=== PATIENT | male | born 1965 | race Hispanic/Latino ===

== ENCOUNTER 2017-08-31 14:51 | Emergency (ER) | payer MEDICAID ==
[~2017-08-31] VITALS: Ht 180.3 cm; Wt 100.0 kg
[2017-08-31] MEDS ORDERED: FOLI800C PO (15:07)
[2017-08-31] MEDS ORDERED: ZOLO50TA PO (15:07)
[2017-08-31] MEDS ORDERED: MAGN1TAB25 PO (15:07)
[2017-08-31] MEDS ORDERED: ACIP1TAB PO (15:07)
[2017-08-31] MEDS ORDERED: LEVO125T4 PO (15:07)
[2017-08-31] MEDS ORDERED: EXCETAB81 PO (15:07)
[2017-08-31] MEDS ORDERED: LORazepam 2 MG/ML VIAL (J2060) IV STA (16:16)
[2017-08-31] MEDS ORDERED: NS 1,000 ML IV ONE (16:30)
[2017-08-31 16:48] LABS: BASO # 0.1 10^3/uL (0.0-0.2); BASO % 0.6 % (0.0-1.0); EOS # 0.2 10^3/uL (0.0-0.50); EOS % 2.1 % (0.0-3.0); IMMATURE GRANULOCYTE % 0.4 % (0-0); LYMPH % 17.3 % (24.0-44.0); MEAN CORPUSCULAR HEMOGLOBIN 22.5 pg (27.0-33.0); MEAN CORPUSCULAR HGB CONC 28.3 g/dl (32.0-36.5); MEAN CORPUSCULAR VOLUME 79.6 fl (80.0-96.0); MONO # 0.6 10^3/uL (0.0-0.8); MONO % 5.1 % (0.0-5.0); NEUTROPHILS # 8.4 10^3/uL (1.8-7.7); NEUTROPHILS % 74.5 % (36.0-66.0); PLATELET COUNT, AUTOMATED 323 10^3/uL (150-450); RED CELL DISTRIBUTION WIDTH 19.3 % (11.5-14.5); WHITE BLOOD COUNT 11.3 10^3/uL (4.0-10.0)
--- NOTE | 2017-08-31 17:09 | ECGEPIP ---
Stationary ECG Study [facility] - ED Test Date: 2017-08-31 Pat Name: ALLEN AVILEZ Department: Room: - Gender: M Senior Sales Administrator: LISA : [id number] Requested By: Jonn Dobbins Order Number: [id number] Reading MD: Idris Feliciano Measurements Intervals Gladys Rate: 66 P: 78 [place]: 185 QRS: 77 QRSD: 80 T: 69 QT: 412 QTc: 432 Interpretive Statements SINUS RHYTHM INC. RBBB NSTTW ABNORMALITIES NO PRIORS Electronically Signed On 08-31-2017 17:08:58 EDT by Idris Feliciano
[2017-08-31 17:22] LABS: ALBUMIN 4.2 GM/DL (3.2-5.2); ALKALINE PHOSPHATASE 133 U/L (45-117); ALT/SGPT 21 U/L (12-78); ANION GAP 5 MEQ/L (8-16); AST/SGOT 19 U/L (15-37); BILIRUBIN,DIRECT 0.2 MG/DL (0.0-0.2); BILIRUBIN,TOTAL 0.5 MG/DL (0.2-1.0); BLOOD UREA NITROGEN 11 MG/DL (7-18); CALCIUM LEVEL 8.6 MG/DL (8.5-10.1); CARBON DIOXIDE LEVEL 27 MEQ/L (21-32); CHLORIDE LEVEL 109 MEQ/L (98-107); CREATININE FOR GFR 1.22 MG/DL (0.70-1.30); GLOMERULAR FILTRATION RATE > 60.0 (>56); GLUCOSE, FASTING 85 MG/DL (70-105); POTASSIUM SERUM 3.5 MEQ/L (3.5-5.1); SODIUM LEVEL 141 MEQ/L (136-145); TOTAL PROTEIN 8.4 GM/DL (6.4-8.2)
[2017-08-31 17:39] LABS: METHADONE URINE NEGATIVE (NEGATIVE)
[2017-08-31] MEDS ORDERED: OXAZ15CA4 PO (17:57)
[2017-08-31] MEDS ORDERED: OXAZEPAM 15 MG CAP PO ONE (18:00)
[2017-08-31 18:51] VITALS: BP 180/93
== END 2017-08-31 18:53 | disposition home or self-care (01) ==
LOC: M ED 14:51 → EDBD 14:51 → M ED 18:53
DX: D64.9 Anemia, unspecified (principal); F10.10 Alcohol abuse, uncomplicated; Z72.0 Tobacco use
CPT/HCPCS: 80048; 80076; 80307; 84443; 85025; 93005; 96361; 96374; 99284; G0480; J2060

== ENCOUNTER 2017-10-18 03:50 | Emergency (ER) | payer MEDICAID, OTHER ==
[~2017-10-18] VITALS: Ht 180.3 cm; Wt 95.5 kg
[~2017-10-18 03:50] MED LIST: ACIP1TAB PO; EXCETAB81 PO; FOLI800C PO; LEVO125T4 PO; MAGN1TAB25 PO; OXAZ15CA4 PO; ZOLO50TA PO
[2017-10-18] MEDS ORDERED: ACAM0.05 (04:03)
[2017-10-18] MEDS ORDERED: SUMA50TA2 (04:03)
[2017-10-18] MEDS ORDERED: ATOR1TAB19 (04:03)
[2017-10-18] MEDS ORDERED: FERR1TAB8 (04:03)
[2017-10-18] MEDS ORDERED: VITA500T (04:03)
[2017-10-18] MEDS ORDERED: VITA100T2 (04:03)
[2017-10-18] MEDS ORDERED: VITA10002 (04:03)
[2017-10-18] MEDS ORDERED: CYCLOBENZAPRINE 10 MG TAB PO ONE (08:00)
[2017-10-18] MEDS ORDERED: IBUPROFEN 800 MG TAB PO ONE (08:00)
--- NOTE | 2017-10-18 08:15 | REP ---
Left rib series: Five views including PA chest. History: Left rib pain. No comparison views. Findings: PA chest radiograph shows no evidence of pneumothorax or hydrothorax. Mediastinum is not widened. There is a zone of linear fibrosis in the right base. There are old healed right posterior rib fractures involving rib numbers 7, 8 and 9. A small zone of linear fibrosis versus discoid atelectasis is present in the left base. Mediastinum is not widened. Aorta is slightly tortuous. Heart size is normal. Multiple views of the left rib cage show no evidence of rib fracture or bony destructive lesion in the left hemithorax. There is a mild dextroconvex curve in the lumbar spine. Impression: No acute rib fracture or bony destructive lesion seen. Old healed rib fractures on the right. Mild bibasilar plate-like atelectasis versus linear scarring. Signed by Edy Campos MD 10/18/2017 04:14 P
[2017-10-18] MEDS ORDERED: CYCL10TA PO (08:23)
[2017-10-18 09:12] VITALS: BP 149/81
== END 2017-10-18 09:14 | disposition home or self-care (01) ==
LOC: EDBD 03:50 → M ED 03:50
DX: R07.81 Pleurodynia (principal); Z72.0 Tobacco use; W01.198A Fall on same level from slipping, tripping and stumbling with subsequent striking against other object, initial encounter; Y92.099 Unspecified place in other non-institutional residence as the place of occurrence of the external cause; Y93.01 Activity, walking, marching and hiking; Y99.9 Unspecified external cause status

== ENCOUNTER → 2018-02-01 | Outpatient (CLI) | payer OTHER | LOC: M OUTALCOH 08:14 | DX: Z13.9 Encounter for screening, unspecified (principal); F10.20 Alcohol dependence, uncomplicated ==

== ENCOUNTER → 2018-02-02 | Outpatient (REF) | payer OTHER ==
[2018-02-02 16:37] LABS: BASO # 0.1 10^3/uL (0.0-0.2); BASO % 0.8 % (0.0-1.0); EOS # 0.1 10^3/uL (0.0-0.50); EOS % 0.9 % (0.0-3.0); HEMATOCRIT 44.5 % (42.0-52.0); HEMOGLOBIN 13.7 g/dl (14.0-18.0); IMMATURE GRANULOCYTE % 0.3 % (0-3.0); LYMPH # 1.7 10^3/uL (1.5-4.5); LYMPH % 16.3 % (24.0-44.0); MEAN CORPUSCULAR HEMOGLOBIN 28.4 pg (27.0-33.0); MEAN CORPUSCULAR HGB CONC 30.8 g/dl (32.0-36.5); MEAN CORPUSCULAR VOLUME 92.3 fl (80.0-96.0); MONO # 0.7 10^3/uL (0.0-0.8); NEUTROPHILS # 7.8 10^3/uL (1.8-7.7); NEUTROPHILS % 74.7 % (36.0-66.0); PLATELET COUNT, AUTOMATED 248 10^3/uL (150-450); RED BLOOD COUNT 4.82 10^6/uL (4.30-6.10); RED CELL DISTRIBUTION WIDTH 16.3 % (11.5-14.5); WHITE BLOOD COUNT 10.4 10^3/uL (4.0-10.0)
[2018-02-02 16:48] LABS: INR 1.03; PROTHROMBIN TIME 13.6 SECONDS (12.4-14.5)
[2018-02-02 17:27] LABS: FOLATE 14.4 NG/ML; VITAMIN B12 LEVEL 527 PG/ML
[2018-02-02 17:33] LABS: ALBUMIN 4.2 GM/DL (3.2-5.2); ALBUMIN/GLOBULIN RATIO 1.02 (1.00-1.93); ALKALINE PHOSPHATASE 175 U/L (45-117); ALT/SGPT 27 U/L (12-78); ANION GAP 11 MEQ/L (8-16); AST/SGOT 30 U/L (7-37); BILIRUBIN,TOTAL 0.7 MG/DL (0.2-1.0); BLOOD UREA NITROGEN 10 MG/DL (7-18); CARBON DIOXIDE LEVEL 24 MEQ/L (21-32); CHLORIDE LEVEL 107 MEQ/L (98-107); CHOLESTEROL LEVEL 254 MG/DL (<200); CHOLESTEROL RISK RATIO 3.342 (<5); GLOMERULAR FILTRATION RATE > 60.0 (>56); GLUCOSE, FASTING 100 MG/DL (70-100); HDL CHOLESTEROL 76 MG/DL (>40); IRON (FE) 136 UG/DL (65-175); LDL CHOLESTEROL 103.4 MG/DL (<100); MAGNESIUM LEVEL 2.1 MG/DL (1.8-2.4); NON-HDL-C 178 MG/DL; PERCENT SATURATION 30.8 % (19.7-50.0); SODIUM LEVEL 142 MEQ/L (136-145); TOTAL IRON BINDING CAPACITY 442 UG/DL (250-450); TOTAL PROTEIN 8.3 GM/DL (6.4-8.2); TRIGLYCERIDES LEVEL 373 MG/DL (<150)
[2018-02-05 14:40] LABS: VITAMIN B1 LEVEL WHOLE BLOOD 251.9 nmol/L (66.5-200.0)
== END ==
LOC: M SFHCLERA 11:02
DX: E03.9 Hypothyroidism, unspecified (principal); D64.9 Anemia, unspecified; F10.20 Alcohol dependence, uncomplicated; E78.5 Hyperlipidemia, unspecified; K21.9 Gastro-esophageal reflux disease without esophagitis

== ENCOUNTER → 2018-03-13 | Outpatient (CLI) | payer OTHER | LOC: M OUTALCOH 13:36 | DX: F10.20 Alcohol dependence, uncomplicated (principal) ==

== ENCOUNTER 2018-03-23 13:17 | Outpatient (RCR) | payer OTHER | END 2018-04-20 | LOC: M OUTALCOH 13:17 | DX: F10.20 Alcohol dependence, uncomplicated (principal); Z72.0 Tobacco use ==

== ENCOUNTER 2018-05-09 17:10 | Emergency (ER) | payer OTHER ==
[2018-05-09 18:46] LABS: HEMATOCRIT 42.3 % (42.0-52.0); HEMOGLOBIN 13.8 g/dl (13.5-17.5); MEAN CORPUSCULAR HEMOGLOBIN 26.8 pg (27.0-33.0); MEAN CORPUSCULAR HGB CONC 32.6 g/dl (32.0-36.5); MEAN CORPUSCULAR VOLUME 82.1 fl (80.0-96.0); PLATELET COUNT, AUTOMATED 190 10^3/uL (150-450); RED BLOOD COUNT 5.15 10^6/uL (4.30-6.10); RED CELL DISTRIBUTION WIDTH 13.9 % (11.5-14.5)
[2018-05-09 19:50] LABS: ALBUMIN 3.9 GM/DL (3.2-5.2); ALBUMIN/GLOBULIN RATIO 0.98 (1.00-1.93); ALKALINE PHOSPHATASE 150 U/L (45-117); ALT/SGPT 34 U/L (12-78); ANION GAP 12 MEQ/L (8-16); AST/SGOT 27 U/L (7-37); BILIRUBIN,DIRECT 0.1 MG/DL (0.0-0.2); BILIRUBIN,TOTAL 0.5 MG/DL (0.2-1.0); BLOOD UREA NITROGEN 10 MG/DL (7-18); CALCIUM LEVEL 8.2 MG/DL (8.5-10.1); CARBON DIOXIDE LEVEL 23 MEQ/L (21-32); CHLORIDE LEVEL 109 MEQ/L (98-107); CREATININE FOR GFR 1.16 MG/DL (0.70-1.30); ETHYL ALCOHOL (ETHANOL) 0.294 % (0.000-0.010); GLOMERULAR FILTRATION RATE > 60.0 (>56); GLUCOSE, FASTING 96 MG/DL (70-100); POTASSIUM SERUM 3.5 MEQ/L (3.5-5.1); SALICYLATE LEVEL 3.2 MG/DL (5.0-30.0); SODIUM LEVEL 144 MEQ/L (136-145); TOTAL PROTEIN 7.9 GM/DL (6.4-8.2)
[2018-05-09 20:07] LABS: ACETAMINOPHEN LEVEL < 2.0 UG/ML (10.0-30.0)
[2018-05-09 20:08] LABS: AMPHETAMINES LEVEL URINE NEGATIVE (NEGATIVE); BARBITURATES URINE NEGATIVE (NEGATIVE); BENZODIAZEPINES URINE NEGATIVE (NEGATIVE); CANNABINOIDS URINE NEGATIVE (NEGATIVE); COCAINE METABOLITE URINE NEGATIVE (NEGATIVE); METHADONE URINE NEGATIVE (NEGATIVE); OPIATES URINE NEGATIVE (NEGATIVE); PHENCYCLIDINE URINE NEGATIVE (NEGATIVE)
== END 2018-05-09 21:46 | disposition home or self-care (01) ==
LOC: M ED 17:10
DX: F10.10 Alcohol abuse, uncomplicated (principal); I10 Essential (primary) hypertension; K21.9 Gastro-esophageal reflux disease without esophagitis; F32.9 Major depressive disorder, single episode, unspecified; Z72.0 Tobacco use; Z79.899 Other long term (current) drug therapy; Z88.5 Allergy status to narcotic agent
CPT/HCPCS: 80320

== ENCOUNTER → 2018-06-14 | Outpatient (CLI) | payer OTHER ==
[2018-06-14 13:16] LABS: HEMATOCRIT 44.4 % (42.0-52.0); MEAN CORPUSCULAR HEMOGLOBIN 26.7 pg (27.0-33.0); MEAN CORPUSCULAR HGB CONC 31.5 g/dl (32.0-36.5); MEAN CORPUSCULAR VOLUME 84.6 fl (80.0-96.0); PLATELET COUNT, AUTOMATED 218 10^3/uL (150-450); RED BLOOD COUNT 5.25 10^6/uL (4.30-6.10); RED CELL DISTRIBUTION WIDTH 14.5 % (11.5-14.5); WHITE BLOOD COUNT 9.7 10^3/uL (4.0-10.0)
[2018-06-14 13:49] LABS: AMMONIA 29 uMOL/L (<32)
[2018-06-14 13:58] LABS: ALBUMIN 4.1 GM/DL (3.2-5.2); ALBUMIN/GLOBULIN RATIO 1.08 (1.00-1.93); ALKALINE PHOSPHATASE 141 U/L (45-117); ALT/SGPT 42 U/L (12-78); ANION GAP 11 MEQ/L (8-16); AST/SGOT 29 U/L (7-37); BILIRUBIN,TOTAL 0.5 MG/DL (0.2-1.0); BLOOD UREA NITROGEN 13 MG/DL (7-18); CALCIUM LEVEL 8.7 MG/DL (8.5-10.1); CARBON DIOXIDE LEVEL 21 MEQ/L (21-32); CHLORIDE LEVEL 109 MEQ/L (98-107); CREATININE FOR GFR 1.13 MG/DL (0.70-1.30); GLOMERULAR FILTRATION RATE > 60.0 (>56); GLUCOSE, FASTING 88 MG/DL (70-100); SODIUM LEVEL 141 MEQ/L (136-145); TOTAL PROTEIN 7.9 GM/DL (6.4-8.2)
== END ==
LOC: M LAB 12:42
DX: F10.20 Alcohol dependence, uncomplicated (principal)
CPT/HCPCS: 82140

== ENCOUNTER → 2018-06-14 | Outpatient (REF) | payer OTHER | LOC: M SFHCLERA 11:22 | DX: F10.20 Alcohol dependence, uncomplicated (principal) ==

== ENCOUNTER → 2018-06-27 | Outpatient (CLI) | payer OTHER | LOC: M CARPUL 09:35 | DX: I10 Essential (primary) hypertension (principal) | CPT/HCPCS: 93306 ==

== ENCOUNTER → 2018-06-29 | Outpatient (CLI) | payer OTHER | LOC: M LRY 07:54 | DX: F10.20 Alcohol dependence, uncomplicated (principal); K76.89 Other specified diseases of liver | CPT/HCPCS: 76705 ==